=== PATIENT | female | born 1995 | race African-American/Black ===

== ENCOUNTER 2016-10-08 10:48 | Emergency (ER) | payer SELFPAY ==
[~2016-10-08] VITALS: Ht 149.9 cm; Wt 50.0 kg
[~2016-10-08 10:48] MED LIST: MOTRIN
[2016-10-08 11:27] VITALS: BP 126/87
== END 2016-10-08 13:49 | disposition home or self-care (01) ==
LOC: ER 12:25
DX: S09.90XA Unspecified injury of head, initial encounter (principal); M54.5 Low back pain; V43.52XA Car driver injured in collision with other type car in traffic accident, initial encounter; Y92.488 Other paved roadways as the place of occurrence of the external cause
CPT/HCPCS: 99281

== ENCOUNTER 2020-06-11 14:26 | Emergency (ER) | payer MEDICAID ==
[~2020-06-11] VITALS: Ht 154.9 cm; Wt 45.0 kg
[2020-06-11 14:40] VITALS: BP 107/74
[2020-06-11 17:57] LABS: CLARITY URINE CLOUDY (CLEAR); COLOR URINE YELLOW (YELLOW); KETONES URINE NEGATIVE (NEGATIVE); LEUKOCYTE ESTERASE URINE 2+ (NEGATIVE); NITRITE URINE NEGATIVE (NEGATIVE); OCCULT BLOOD URINE TRACE (NEGATIVE); PROTEIN URINE 2+ (NEGATIVE); SPECIFIC GRAVITY URINE 1.034 (1.005-1.030); UROBILINOGEN URINE 0.2 E.U./dL (0.2-1.0)
[2020-06-11] MEDS ORDERED: AZITHROMYCIN 500 MG TABLET PO NR (18:15)
[2020-06-11] MEDS ORDERED: CEFTRIAXONE SODIUM 250 MG/VIAL IM NR (18:15)
[2020-06-11] MEDS ORDERED: LIDOCAINE HCL 1% 20ML VIAL (Pyxis) INJ INFIL NR (18:15)
[2020-06-11] MEDS ORDERED: ONDANSETRON HCL 4MG/2ML INJ IM STA (18:22)
[2020-06-11] MEDS ORDERED: AZITHROMYCIN 40MG/ML SUSP 5ML ORAL SYR PO ONE (18:30)
[2020-06-11] MEDS ORDERED: AZITHROMYCIN 500 MG TABLET PO ONE (18:45)
== END 2020-06-11 18:47 | disposition home or self-care (01) ==
LOC: ER 14:26
DX: L04.1 Acute lymphadenitis of trunk (principal); A59.01 Trichomonal vulvovaginitis; N72 Inflammatory disease of cervix uteri
CPT/HCPCS: 81003; 81025; 87086; 87210; 87491; 87591; 96372; 99283; J0696; J3490

== ENCOUNTER 2020-09-25 17:26 | Emergency (ER) | payer OTHER ==
[~2020-09-25] VITALS: Ht 157.5 cm; Wt 55.0 kg
[2020-09-25] MEDS ORDERED: SODIUM CHLORIDE 0.9% 1,000 ML IV ONE (18:15)
[2020-09-25 18:53] LABS: BASOPHILS % 0.6 % (0.0-2.0); EOSINOPHILS % 0.9 % (0.0-5.0); HEMATOCRIT. 37.8 % (36.0-48.0); HEMOGLOBIN. 12.2 g/dL (12.0-16.0); LYMPHOCYTES % 46.2 % (20.0-50.0); MEAN CORPUSCULAR HEMOGLOBIN 27.1 pg (28.0-32.0); MEAN CORPUSCULAR VOLUME 83.4 fL (81.0-99.0); MEAN PLATELET VOLUME 9.9 fl (7.4-10.4); NEUTROPHILS % 41.3 % (40.0-76.0); PLATELET 170 x1000/uL (130-400); RED BLOOD CELL COUNT 4.53 mill/uL (4.2-5.4); RED CELL DISTRIBUTION WIDTH 15.1 % (11.6-14.6)
[2020-09-25 18:59] LABS: CHLORIDE 106 mEq/L (98-107)
[2020-09-25 19:13] LABS: CLARITY URINE CLEAR (CLEAR); COLOR URINE YELLOW (YELLOW); KETONES URINE TRACE (NEGATIVE); LEUKOCYTE ESTERASE URINE 1+ (NEGATIVE); NITRITE URINE NEGATIVE (NEGATIVE); OCCULT BLOOD URINE NEGATIVE (NEGATIVE); PH URINE 5.5 (4.5-8.0); PROTEIN URINE NEGATIVE (NEGATIVE); SPECIFIC GRAVITY URINE 1.026 (1.005-1.030); UROBILINOGEN URINE 0.2 E.U./dL (0.2-1.0)
[2020-09-25 19:30] LABS: *AMPHETAMINES SCREEN URINE NEGATIVE (NEGATIVE); *BARBITURATES SCREEN URINE NEGATIVE (NEGATIVE)
[2020-09-25 19:30] LABS: HCG SCREEN NEGATIVE
[2020-09-25 19:31] LABS: *BENZODIAZEPINES SCREEN URINE NEGATIVE (NEGATIVE); *COCAINE SCREEN URINE NEGATIVE (NEGATIVE); METHADONE URINE SCREEN NEGATIVE (NEGATIVE); OPIATES URINE SCREEN NEGATIVE (NEGATIVE); PHENCYCLIDINE URINE SCREEN NEGATIVE (NEGATIVE)
[2020-09-25 19:37] LABS: CANNABINOID URINE SCREEN PRESUMTIVE POSITIVE (NEGATIVE)
[2020-09-25 19:40] VITALS: BP 118/84
[2020-09-25] MEDS ORDERED: METR500T MT (20:55)
[2020-09-25] MEDS ORDERED: DIF15 MT (20:55)
[2020-09-25] MEDS ORDERED: FLUCONAZOLE 100MG TABLET PO NR (21:00)
[2020-09-25] MEDS ORDERED: METRONIDAZOLE 500MG TABLET PO NR (21:00)
== END 2020-09-25 21:17 | disposition home or self-care (01) ==
LOC: ER 17:26
DX: N76.0 Acute vaginitis (principal); B37.3 Candidiasis of vulva and vagina; Z20.2 Contact with and (suspected) exposure to infections with a predominantly sexual mode of transmission; F12.90 Cannabis use, unspecified, uncomplicated; Z86.19 Personal history of other infectious and parasitic diseases
CPT/HCPCS: 36415; 80053; 80305; 81003; 81025; 83690; 84703; 85025; 85610; 87210; 87591; 93005; 96360; 99284; J7030

== ENCOUNTER 2022-01-20 19:34 | Emergency (ER) | payer MEDICAID, OTHER ==
[~2022-01-20] VITALS: Ht 154.9 cm; Wt 49.0 kg
[~2022-01-20 19:34] MED LIST changes: +DIF15 MT; +METR500T MT
[2022-01-20 22:00] VITALS: BP 140/105
[2022-01-20] MEDS ORDERED: TRAMADOL 50MG TABLET PO ONE (22:00)
[2022-01-20] MEDS ORDERED: IBUPROFEN 400MG TABLET PO ONE (22:00)
[2022-01-20] MEDS ORDERED: IBUP-2028 MT (22:49)
== END 2022-01-20 20:51 ==
LOC: ER 19:34
DX: M79.672 Pain in left foot (principal)
CPT/HCPCS: 73610; 73630; 99284

== ENCOUNTER 2022-12-03 14:01 | Emergency (ER) | payer MEDICAID, OTHER ==
[~2022-12-03] VITALS: Ht 154.9 cm; Wt 41.0 kg
[~2022-12-03 14:01] MED LIST changes: +IBUP-2028 MT
[2022-12-03 14:08] VITALS: BP 129/97
[2022-12-03 15:11] LABS: CHLORIDE 104 mEq/L (98-107)
[2022-12-03 15:18] LABS: HCG SCREEN NEGATIVE
[2022-12-03 15:21] LABS: BASOPHILS % 0.3 % (0.0-2.0); EOSINOPHILS % 0.3 % (0.0-5.0); HEMATOCRIT. 36.6 % (36.0-48.0); HEMOGLOBIN. 12.3 g/dL (12.0-16.0); LYMPHOCYTES % 17.5 % (20.0-50.0); MEAN CORPUSCULAR HEMOGLOBIN 28.8 pg (28.0-32.0); MEAN PLATELET VOLUME 9.6 fl (7.4-10.4); MONOCYTES % 8.7 % (2.0-8.0); NEUTROPHILS % 73.2 % (40.0-76.0); PLATELET 220 x1000/uL (130-400); RED BLOOD CELL COUNT 4.26 mill/uL (4.2-5.4); RED CELL DISTRIBUTION WIDTH 13.7 % (11.6-14.6)
== END 2022-12-03 16:56 | disposition left against medical advice (07) ==
LOC: ER 14:01
DX: Z53.21 Procedure and treatment not carried out due to patient leaving prior to being seen by health care provider (principal)
CPT/HCPCS: 36415; 71045; 80053; 81025; 84703; 85025; 99281

== ENCOUNTER 2022-12-07 14:20 | Emergency (ER) | payer MEDICAID, OTHER ==
[~2022-12-07] VITALS: Ht 152.4 cm; Wt 41.0 kg
[2022-12-07] MEDS ORDERED: SODIUM CHLORIDE 0.9% 1,000 ML IV ONE (18:00)
[2022-12-07] MEDS ORDERED: ONDANSETRON HCL 4MG/2ML INJ IV ONE (18:15)
[2022-12-07 18:35] LABS: BASOPHILS % 0.6 % (0.0-2.0); EOSINOPHILS % 0.4 % (0.0-5.0); HEMOGLOBIN. 13.3 g/dL (12.0-16.0); LYMPHOCYTES % 25.6 % (20.0-50.0); MEAN CORPUSCULAR HEMOGLOBIN 28.6 pg (28.0-32.0); MEAN PLATELET VOLUME 10.3 fl (7.4-10.4); MONOCYTES % 10.3 % (2.0-8.0); NEUTROPHILS % 63.1 % (40.0-76.0); PLATELET 232 x1000/uL (130-400); RED BLOOD CELL COUNT 4.64 mill/uL (4.2-5.4); RED CELL DISTRIBUTION WIDTH 14.1 % (11.6-14.6)
[2022-12-07 18:42] LABS: CHLORIDE 105 mEq/L (98-107)
[2022-12-07 18:54] LABS: HCG SCREEN NEGATIVE
[2022-12-07 19:42] VITALS: BP 138/90
== END 2022-12-07 19:53 | disposition left against medical advice (07) ==
LOC: ER 14:31
DX: R00.2 Palpitations (principal); R06.02 Shortness of breath
CPT/HCPCS: 36415; 71045; 80053; 81025; 83735; 83880; 84484; 84703; 85025; 85379; 93005; 96360; 99285; J7030